=== PATIENT | female | born 1990 | race Caucasian/White ===

== ENCOUNTER → 2017-02-20 | Outpatient (REF) | payer BC | LOC: M SFHCWAGY 15:50 | PROVIDERS: ATTEND Nurse Practitioner Women's Health | DX: Z12.4 Encounter for screening for malignant neoplasm of cervix (principal) ==

== ENCOUNTER → 2017-03-17 | Outpatient (CLI) | payer BC | LOC: M WUC 08:12 | PROVIDERS: ATTEND Internal Medicine Endocrinology, Diabetes & Metabolism | DX: E22.1 Hyperprolactinemia (principal) ==

== ENCOUNTER → 2017-12-07 | Outpatient (CLI) | payer BC ==
[2017-12-07 13:00] LABS: PROLACTIN 61.6 NG/ML
== END ==
LOC: M WUC 08:54
DX: E22.1 Hyperprolactinemia (principal)
CPT/HCPCS: 84146

== ENCOUNTER → 2017-12-19 | Outpatient (CLI) | payer BC ==
[2017-12-21 08:11] LABS: CORTISOL AM 11.5 UG/DL (4.3-22.4)
[2017-12-22 14:14] LABS: ADRENOCORTICOTROPHIC HORMONE 8.2 pg/mL (7.2-63.3)
== END ==
LOC: M WUC 09:55
DX: E66.09 Other obesity due to excess calories (principal)
CPT/HCPCS: 82533

== ENCOUNTER → 2018-02-04 | Outpatient (REF) | payer BC | LOC: M LAB REF 17:34 | DX: D14.0 Benign neoplasm of middle ear, nasal cavity and accessory sinuses (principal) | CPT/HCPCS: 88305 ==

== ENCOUNTER → 2019-01-25 | Outpatient (REF) | payer BC | LOC: M LABDRAW1 13:52 | PROVIDERS: ATTEND Internal Medicine Endocrinology, Diabetes & Metabolism | DX: E22.1 Hyperprolactinemia (principal) ==

== ENCOUNTER → 2019-07-04 | Outpatient (REF) | payer BC ==
[2019-07-04 15:22] LABS: CHLAMYDIA DNA AMPLIFICATION NEGATIVE (NEGATIVE); GC DNA AMPLIFICATION NEGATIVE (NEGATIVE)
== END ==
LOC: M PLALAB 08:06
PROVIDERS: ATTEND Nurse Practitioner Women's Health
DX: Z12.4 Encounter for screening for malignant neoplasm of cervix (principal)
CPT/HCPCS: 87624; 87661; G0123

== ENCOUNTER → 2019-09-12 | Outpatient (CLI) | payer BC | LOC: M WUC 17:06 | PROVIDERS: ATTEND Internal Medicine Endocrinology, Diabetes & Metabolism | DX: E22.1 Hyperprolactinemia (principal) ==

== ENCOUNTER → 2019-12-03 | Outpatient (CLI) | payer BC | LOC: M WUC 09:56 | PROVIDERS: ATTEND Nurse Practitioner Family | DX: E22.1 Hyperprolactinemia (principal) ==

== ENCOUNTER → 2020-03-21 | Outpatient (REF) | payer BC | LOC: M WUC 14:43 | PROVIDERS: ATTEND Internal Medicine Endocrinology, Diabetes & Metabolism | DX: E22.1 Hyperprolactinemia (principal) ==

== ENCOUNTER 2020-05-25 20:56 | Emergency (ER) | payer BC, OTHER ==
[~2020-05-25] VITALS: Ht 157.5 cm; Wt 80.9 kg
--- NOTE | 2020-05-26 00:07 | REPVR ---
PROCEDURE INFORMATION: Exam: CT Head Without Contrast Exam date and time: 05/25/2020 11:40 PM Age: 30 years old Clinical indication: Injury or trauma; Fall; Concussion/head injury; Consciousness not specified; Injury details: Fell 2 weeks ago continued headache; Additional info: Syncope TECHNIQUE: Imaging protocol: Computed tomography of the head without contrast. Axial and coronal reformatted images were created and reviewed. Radiation optimization: All CT scans at this facility use at least one of these dose optimization techniques: automated exposure control; mA and/or kV adjustment per patient size (includes targeted exams where dose is matched to clinical indication); or iterative reconstruction. COMPARISON: No relevant prior studies available. FINDINGS: Brain: No CT evidence of acute intracranial hemorrhage or acute territorial infarction. No significant mass effect or midline shift. Basal cisterns patent. Cerebral ventricles: Normal in size and configuration. Bones/joints: No acute osseous abnormality. Paranasal sinuses: Unremarkable. No fluid levels. Mastoid air cells: Grossly unremarkable. Soft tissues: Grossly unremarkable. IMPRESSION: No CT evidence of acute intracranial pathology. Electronically signed by: Fran Tejada On 05/26/2020 00:07:31 AM
[2020-05-26 00:21] LABS: BASO # 0.1 10^3/uL (0.0-0.2); BASO % 0.7 % (0.0-1.0); EOS # 0.2 10^3/uL (0.0-0.5); HEMATOCRIT 44.1 % (36.0-47.0); HEMOGLOBIN 14.3 g/dl (12.0-15.5); LYMPH % 30.8 % (24.0-44.0); MEAN CORPUSCULAR HEMOGLOBIN 30.4 pg (27.0-33.0); MEAN CORPUSCULAR HGB CONC 32.4 g/dl (32.0-36.5); MEAN CORPUSCULAR VOLUME 93.8 fl (80.0-96.0); MONO # 0.9 10^3/uL (0.0-0.8); MONO % 9.3 % (0.0-5.0); NEUTROPHILS # 5.6 10^3/uL (1.5-8.5); PLATELET COUNT, AUTOMATED 314 10^3/uL (150-450); WHITE BLOOD COUNT 9.8 10^3/uL (4.0-10.0)
[2020-05-26 00:53] LABS: CK-MB VALUE MASS 2.2 NG/ML (<3.6); CPK CREATINE PHOSPHOKINASE 203 U/L (26-192); FREE T4 1.01 NG/DL (0.76-1.46); MAGNESIUM LEVEL 2.3 MG/DL (1.8-2.4); MB/CK RELATIVE INDEX 1.08 (< OR =4); TROPONIN I < 0.02 NG/ML (< 0.10)
[2020-05-26 02:09] VITALS: BP 130/75
--- NOTE | 2020-05-26 08:19 | ECGEPIP ---
[facility] - ED Test Date: 2020-05-25 Pat Name: LIBERTAD VELAZQUEZ Department: Room: - Gender: Female Living Supervisor: PAULINE : 1990 Requested By: KD DUBOIS PA-C Order Number: [id number] Reading MD: Tam Brown Measurements Intervals [place] Rate: 59 P: 52 WV: 148 QRS: 29 QRSD: 101 T: 3 QT: 407 QTc: 403 Interpretive Statements SINUS BRADYCARDIA Comparison tracing not on file Electronically Signed on 05-26-2020 8:19:12 EDT by Tam Brown
== END 2020-05-26 02:12 | disposition short-term general hospital (02) ==
LOC: M ED 20:56
DX: R55 Syncope and collapse (principal); R94.6 Abnormal results of thyroid function studies; R00.1 Bradycardia, unspecified; R29.6 Repeated falls; D49.7 Neoplasm of unspecified behavior of endocrine glands and other parts of nervous system

== ENCOUNTER → 2020-07-20 | Outpatient (REF) | payer OTHER ==
[2020-07-21 08:40] LABS: CHLAMYDIA DNA AMPLIFICATION NEGATIVE (NEGATIVE); GC DNA AMPLIFICATION NEGATIVE (NEGATIVE)
== END ==
LOC: M SFHCWAGY 12:39
PROVIDERS: ATTEND Nurse Practitioner Women's Health
DX: N93.0 Postcoital and contact bleeding (principal); Z12.4 Encounter for screening for malignant neoplasm of cervix

== ENCOUNTER → 2020-08-17 | Outpatient (CLI) | payer SELFPAY | LOC: M LABSMTC 11:16 | PROVIDERS: ATTEND Pediatrics | DX: Z20.822 Contact with and (suspected) exposure to COVID-19 (principal) ==

== ENCOUNTER → 2020-09-10 | Outpatient (CLI) | payer OTHER ==
[2020-09-10 16:47] LABS: FREE T4 0.86 NG/DL (0.76-1.46); THYROID STIMULATING HORMONE 2.31 uIU/ML (0.358-3.740)
[2020-09-10 16:49] LABS: PROLACTIN 39.8 NG/ML
== END ==
LOC: M WUC 11:44
PROVIDERS: ATTEND Internal Medicine Endocrinology, Diabetes & Metabolism
DX: R94.6 Abnormal results of thyroid function studies (principal); E22.1 Hyperprolactinemia

== ENCOUNTER 2020-10-03 09:16 | Outpatient (RCR) | payer OTHER | END 2020-10-07 | LOC: M OT 09:16 | PROVIDERS: ATTEND Nurse Practitioner Adult Health | DX: S06.0X9A Concussion with loss of consciousness of unspecified duration, initial encounter (principal); G44.89 Other headache syndrome; H53.9 Unspecified visual disturbance; R42 Dizziness and giddiness; R53.83 Other fatigue; R68.89 Other general symptoms and signs ==

== ENCOUNTER 2020-11-06 10:00 | Outpatient (RCR) | payer OTHER | END 2020-11-07 | LOC: M PT 10:00 | PROVIDERS: ATTEND Nurse Practitioner Adult Health | DX: S06.0X9A Concussion with loss of consciousness of unspecified duration, initial encounter (principal); X58.XXXA Exposure to other specified factors, initial encounter; Y92.9 Unspecified place or not applicable; G44.89 Other headache syndrome; H53.9 Unspecified visual disturbance; R68.89 Other general symptoms and signs; R53.83 Other fatigue ==

== ENCOUNTER → 2020-11-14 | Outpatient (CLI) | payer OTHER ==
[2020-11-14 12:05] LABS: PROLACTIN 71.2 NG/ML; THYROID PEROXIDASE ANTIBODY < 28.0 U/ML (<60.0)
== END ==
LOC: M WUC 09:02
PROVIDERS: ATTEND Internal Medicine Endocrinology, Diabetes & Metabolism
DX: E66.09 Other obesity due to excess calories (principal); E22.1 Hyperprolactinemia

== ENCOUNTER → 2020-11-19 | Outpatient (REF) | payer OTHER ==
[2020-11-19 15:39] LABS: CHLAMYDIA DNA AMPLIFICATION NEGATIVE (NEGATIVE); GC DNA AMPLIFICATION NEGATIVE (NEGATIVE)
== END ==
LOC: M PLALAB 12:01
PROVIDERS: ATTEND Obstetrics & Gynecology
DX: Z34.01 Encounter for supervision of normal first pregnancy, first trimester (principal); Z36.89 Encounter for other specified antenatal screening; Z3A.00 Weeks of gestation of pregnancy not specified

== ENCOUNTER → 2020-11-22 | Outpatient (REF) | payer OTHER ==
[2020-11-22 10:43] LABS: HEMATOCRIT 44.4 % (36.0-47.0); HEMOGLOBIN 14.2 g/dl (12.0-15.5); MEAN CORPUSCULAR HEMOGLOBIN 29.8 pg (27.0-33.0); MEAN CORPUSCULAR VOLUME 93.1 fl (80.0-96.0); PLATELET COUNT, AUTOMATED 280 10^3/uL (150-450); RED BLOOD COUNT 4.77 10^6/uL (4.00-5.40); WHITE BLOOD COUNT 7.9 10^3/uL (4.0-10.0)
[2020-11-22 13:47] LABS: GLUCOSE CHALLENGE TEST 1 HOUR 80 MG/DL (LESS THAN 140)
[2020-11-22 14:43] LABS: HEPATITIS C VIRUS ABY INDEX < 0.0 INDEX (<0.8); HIV 1&2 SCREEN CENTAUR NEGATIVE (NEGATIVE)
== END ==
LOC: M PLALAB 08:08
PROVIDERS: ATTEND Obstetrics & Gynecology
DX: O99.211 Obesity complicating pregnancy, first trimester (principal); E66.9 Obesity, unspecified

== ENCOUNTER 2020-11-28 10:42 | Outpatient (RCR) | payer OTHER | END 2020-12-07 | LOC: M OT 10:42 | PROVIDERS: ATTEND Nurse Practitioner Adult Health | DX: S06.0X9A Concussion with loss of consciousness of unspecified duration, initial encounter (principal); G44.89 Other headache syndrome; H53.9 Unspecified visual disturbance; R42 Dizziness and giddiness; R68.89 Other general symptoms and signs; R53.83 Other fatigue; X58.XXXA Exposure to other specified factors, initial encounter; Y92.9 Unspecified place or not applicable ==

== ENCOUNTER → 2020-12-07 | Outpatient (CLI) | payer OTHER | LOC: M PLALAB 08:19 | PROVIDERS: ATTEND Obstetrics & Gynecology | DX: Z34.81 Encounter for supervision of other normal pregnancy, first trimester (principal) ==

== ENCOUNTER → 2020-12-17 | Outpatient (CLI) | payer OTHER | LOC: M WHC 08:07 | PROVIDERS: ATTEND Obstetrics & Gynecology | DX: Z3A.13 13 weeks gestation of pregnancy (principal); Z53.9 Procedure and treatment not carried out, unspecified reason ==

== ENCOUNTER 2020-12-21 09:00 | Outpatient (RCR) | payer OTHER | END 2021-01-07 | LOC: M OT 09:00 | PROVIDERS: ATTEND Nurse Practitioner Adult Health | DX: G44.89 Other headache syndrome (principal); R42 Dizziness and giddiness; M54.2 Cervicalgia; H53.9 Unspecified visual disturbance; R53.83 Other fatigue; R68.89 Other general symptoms and signs; S06.0X9A Concussion with loss of consciousness of unspecified duration, initial encounter; X58.XXXA Exposure to other specified factors, initial encounter; Y92.9 Unspecified place or not applicable; Y93.9 Activity, unspecified; Y99.9 Unspecified external cause status ==

== ENCOUNTER → 2021-01-21 | Outpatient (CLI) | payer OTHER ==
--- NOTE | 2021-01-22 06:53 | REP ---
INDICATION: ANATOMY COMPARISON: None. TECHNIQUE: Transabdominal obstetrical ultrasound with color Doppler evaluation. FINDINGS: Examination demonstrates a single live intrauterine in breech presentation. motion is identified by technologist. Placenta is noted anterior and grade 0 without evidence for placenta previa or abruption. Amniotic fluid volume is normal. Cervix measures 3.4 cm in length and appears closed.. Selected gestational age: 18 weeks 1 day with JUAN 06/23/2021. Gestational age by current measurements 18 weeks 1 day with JUAN 06/23/2021. FHR equals 146 beats per minute. Estimated weight 233 grams (55thpercentile). Anatomical assessment demonstrates normal structures including cranium, choroid plexus, cavum, cerebellum/posterior fossa, facial features, lungs, four-chamber heart/ventricular outflow tracts, diaphragm, stomach, cord insertion/three-vessel cord, bladder, and extremities. IMPRESSION: Single live intrauterine in breech presentation demonstrating appropriate estimated weight. Limited evaluation of the kidneys and spine. Remainder of the anatomical assessment is complete and normal. <Electronically signed by Matias Quiñonez > 01/22/21 [id number]
== END ==
LOC: M WHC 11:31
PROVIDERS: ATTEND Obstetrics & Gynecology
DX: Z36.89 Encounter for other specified antenatal screening (principal); Z3A.18 18 weeks gestation of pregnancy; O32.1XX0 Maternal care for breech presentation, not applicable or unspecified

== ENCOUNTER → 2021-02-12 | Outpatient (CLI) | payer OTHER | LOC: M WHC 11:31 | PROVIDERS: ATTEND Obstetrics & Gynecology | DX: Z36.89 Encounter for other specified antenatal screening (principal); Z3A.21 21 weeks gestation of pregnancy; Z53.9 Procedure and treatment not carried out, unspecified reason ==

== ENCOUNTER → 2021-03-11 | Outpatient (CLI) | payer OTHER ==
--- NOTE | 2021-03-11 12:37 | REP ---
INDICATION: F/U ANATOMY - KIDNEYS/SPINE/EDC 06/23/21. COMPARISON: 01/21/2021. TECHNIQUE: Real-time sonographic evaluation of the gravid uterus performed. FINDINGS: Estimated gestational age is25 weeks 1 day, EDC 06/23/2021. Today's measurements indicate appropriate growth. Presentation: Cephalic Placenta anterior, grade 1, without evidence of placenta previa. heart rate is recorded at 147 beats per minute. Amniotic fluid is subjectively normal. Closed cervical length is measured at 3.8 cm. Biometry chart: BPD: 64 mm, 25 weeks 6 days, 65th percentile. HC: 236 mm, 25 weeks 5 days, 61st percentile AC: 210 mm, 25 weeks 3 days, 57th percentile Femur length: 46 mm, 25 weeks 1 days, 51st percentile HC to AC ratio: 1.13, normal range 1.01-1.20. Estimated weight: 807g, 52nd percentile. anatomy: Cranium: Grossly normal Lateral Ventricles/Choroid Plexus: Grossly normal Posterior Fossa/Cerebellum: Grossly normal Nose/lips/profile: Previously seen. Four chamber heart: Previously seen Right ventricular outflow tract: Previously seen Left ventricular outflow tract: Previously seen Left-sided stomach: Grossly normal Kidneys: Grossly normal Bladder: Grossly normal Cord Insertion: Grossly normal 3 vessel cord: Grossly normal Spine: Grossly normal IMPRESSION: Viable single intrauterine gestation as above. <Electronically signed by Irineo Loomis > 03/11/21 [id number]
== END ==
LOC: M WHC 10:00
PROVIDERS: ATTEND Obstetrics & Gynecology
DX: Z36.2 Encounter for other antenatal screening follow-up (principal); Z3A.25 25 weeks gestation of pregnancy

== ENCOUNTER → 2021-04-01 | Outpatient (CLI) | payer OTHER ==
[2021-04-01 16:09] LABS: HEMATOCRIT 38.6 % (36.0-47.0); HEMOGLOBIN 12.5 g/dl (12.0-15.5); MEAN CORPUSCULAR HEMOGLOBIN 30.4 pg (27.0-33.0); MEAN CORPUSCULAR HGB CONC 32.4 g/dl (32.0-36.5); MEAN CORPUSCULAR VOLUME 93.9 fl (80.0-96.0); PLATELET COUNT, AUTOMATED 277 10^3/uL (150-450); RED BLOOD COUNT 4.11 10^6/uL (4.00-5.40); WHITE BLOOD COUNT 11.2 10^3/uL (4.0-10.0)
== END ==
LOC: M PLALAB 10:04
PROVIDERS: ATTEND Advanced Practice Midwife
DX: Z34.02 Encounter for supervision of normal first pregnancy, second trimester (principal); Z36.89 Encounter for other specified antenatal screening

== ENCOUNTER → 2021-07-22 | Outpatient (CLI) | payer OTHER ==
[~2021-07-22] MED LIST: NIFE1TAB52 PO
[2021-07-22 13:39] LABS: FREE T4 0.93 NG/DL (0.76-1.46); THYROID STIMULATING HORMONE 2.49 uIU/ML (0.358-3.740)
== END ==
LOC: M WUC 11:01
PROVIDERS: ATTEND Internal Medicine Endocrinology, Diabetes & Metabolism
DX: R94.6 Abnormal results of thyroid function studies (principal)

== ENCOUNTER → 2021-08-21 | Outpatient (CLI) | payer OTHER ==
[2021-08-21 13:32] LABS: PROLACTIN 18.1 NG/ML; TESTOSTERONE < 7 NG/DL (14-76)
== END ==
LOC: M WUC 11:04
PROVIDERS: ATTEND Internal Medicine Endocrinology, Diabetes & Metabolism
DX: E22.1 Hyperprolactinemia (principal)

== ENCOUNTER → 2022-01-01 | Outpatient (REF) | payer OTHER | LOC: M SFHCWAGY 13:05 | PROVIDERS: ATTEND Obstetrics & Gynecology | DX: Z12.4 Encounter for screening for malignant neoplasm of cervix (principal) | CPT/HCPCS: 87624; G0123 ==

== ENCOUNTER → 2022-05-08 | Outpatient (REF) | payer OTHER | LOC: M LAB REF 17:04 | PROVIDERS: ATTEND Nurse Practitioner Adult Health | DX: J02.9 Acute pharyngitis, unspecified (principal) ==

== ENCOUNTER → 2022-06-30 | Outpatient (CLI) | payer OTHER ==
[2022-06-30 11:05] LABS: HCG, SERUM QUANTITATIVE 2.59999 MIU/ML (<4.2); THYROID STIMULATING HORMONE 2.413 uIU/ML (0.55-4.78)
== END ==
LOC: M PLALAB 08:26
PROVIDERS: ATTEND Internal Medicine Endocrinology, Diabetes & Metabolism
DX: R94.6 Abnormal results of thyroid function studies (principal); E22.1 Hyperprolactinemia

== ENCOUNTER → 2022-07-16 | Outpatient (REF) | payer OTHER | LOC: M LAB REF 17:36 | PROVIDERS: ATTEND Physician Assistant | DX: J06.9 Acute upper respiratory infection, unspecified (principal) ==

== ENCOUNTER → 2022-10-18 | Outpatient (CLI) | payer OTHER | LOC: M LAB 08:34 | PROVIDERS: ATTEND Obstetrics & Gynecology | DX: N93.9 Abnormal uterine and vaginal bleeding, unspecified (principal) ==

== ENCOUNTER → 2023-07-07 | Outpatient (CLI) | payer OTHER ==
[2023-07-07 12:10] LABS: FREE T4 1.08 NG/DL (0.89-1.76); THYROID STIMULATING HORMONE 3.341 uIU/ML (0.55-4.78)
[2023-07-07 12:11] LABS: PROLACTIN 15.38 NG/ML
== END ==
LOC: M WUC 08:15
PROVIDERS: ATTEND Internal Medicine Endocrinology, Diabetes & Metabolism
DX: R94.6 Abnormal results of thyroid function studies (principal); E22.1 Hyperprolactinemia

== ENCOUNTER → 2023-10-13 | Outpatient (REF) | payer OTHER | LOC: M PLALAB 16:00 | PROVIDERS: ATTEND Obstetrics & Gynecology | DX: Z01.419 Encounter for gynecological examination (general) (routine) without abnormal findings (principal) | CPT/HCPCS: 87624; G0123 ==

== ENCOUNTER → 2023-10-27 | Outpatient (CLI) | payer OTHER | LOC: M WHC 14:29 | PROVIDERS: ATTEND Obstetrics & Gynecology | DX: N93.9 Abnormal uterine and vaginal bleeding, unspecified (principal) ==

== ENCOUNTER → 2024-07-15 | Outpatient (REF) | payer OTHER ==
[2024-07-15 13:28] LABS: FREE T4 0.98 NG/DL (0.89-1.76); THYROID STIMULATING HORMONE 4.741 uIU/ML (0.55-4.78)
[2024-07-15 13:29] LABS: PROLACTIN 16.2 NG/ML
== END ==
LOC: M LABDRWAD 12:40
PROVIDERS: ATTEND Nurse Practitioner Family
DX: R94.6 Abnormal results of thyroid function studies (principal); E22.1 Hyperprolactinemia

== ENCOUNTER → 2024-09-16 | Outpatient (REF) | payer OTHER | LOC: M LAB REF 14:32 | PROVIDERS: ATTEND Physician Assistant | DX: J06.9 Acute upper respiratory infection, unspecified (principal) ==

== ENCOUNTER → 2024-10-05 | Outpatient (CLI) | payer OTHER ==
[~2024-10-05] MED LIST changes: +PROHANCE 279.3MG/ML 5ML VIAL As Ordered ONE
== END ==
LOC: M RAD 16:38
PROVIDERS: ATTEND Family Medicine
DX: D35.2 Benign neoplasm of pituitary gland (principal); G50.0 Trigeminal neuralgia
CPT/HCPCS: 70553; A9576

== ENCOUNTER → 2025-03-03 | Outpatient (REF) | payer OTHER ==
[~2025-03-03] MED LIST changes: -PROHANCE 279.3MG/ML 5ML VIAL As Ordered ONE
== END ==
LOC: M LAB REF 20:05
PROVIDERS: ATTEND Physician Assistant
DX: J06.9 Acute upper respiratory infection, unspecified (principal)

== ENCOUNTER → 2025-05-30 | Outpatient (CLI) | payer OTHER | LOC: M WHC 12:02 | PROVIDERS: ATTEND Nurse Practitioner Adult Health | DX: R59.0 Localized enlarged lymph nodes (principal) ==